=== PATIENT | male | born 1965 | race Caucasian/White ===

== ENCOUNTER 2020-10-06 15:27 | Outpatient (CLI) | payer OTHER, SELFPAY ==
[2020-10-06 18:43] LABS: Hemoglobin A1C 5.3 % (<5.7)
== END 2020-10-06 15:28 | disposition home or self-care (01) ==
DX: R73.09 Other abnormal glucose (principal)
CPT/HCPCS: 36415; 83036

== ENCOUNTER → 2020-12-20 14:03 | Outpatient (CLI) | payer MEDICARE, OTHER, SELFPAY ==
--- NOTE | ~2020-12-20 | XR_ITS ---
EXAMINATION: XR hip BI wo pelvis DATE: 12/20/2020 14:31 INDICATION: Arthritis with chronic bilateral hip pain. TECHNIQUE: Anteroposterior and frog-leg lateral views of the left hip and anteroposterior and frog-le g lateral views of the right hip were obtained. COMPARISON: None. FINDINGS: Alignment is normal at the bilateral hips. No fracture or suspected avascular necrosis. Bilateral hip and sacroiliac joint spaces are normal. Soft tissues are unremarkable. IMPRESSION: 1. Negative bilateral hip radiographs. Reviewed, dictated and finalized at location A.
--- NOTE | ~2020-12-20 | XR_ITS ---
EXAMINATION: XR knee LT 3V DATE: 12/20/2020 14:31 INDICATION: Left knee pain. Arthritis. TECHNIQUE: 3 views of left knee were obtained. COMPARISON: None. FINDINGS: Bone alignment is normal. No fracture. There is mild tricompartmental osteoarthritis. No kn ee joint effusion. IMPRESSION: 1. Mild left knee osteoarthritis. Reviewed, dictated and finalized at location A.
--- NOTE | ~2020-12-20 | XR_ITS ---
XR lumbar spine 2-3V 12/20/2020 14:31 Indication: Arthritis. Back pain. Procedure: 3 views lumbar spine Comparison: No prior studies for comparison. Findings: There is mild disc narrowing at multiple levels including L2-3 and L5-S1. Pedicles intact. Vertebral body heights are maintained. Sacral foramen is symmetric. No acute fracture or traumatic ma lalignment. Impression: 1: Mild lumbar spondylosis. Reviewed, dictated and finalized at location B. Impression: 1: Mild lumbar spondylosis.
--- NOTE | ~2020-12-20 | XR_ITS ---
EXAMINATION: XR knee RT 3V DATE: 12/20/2020 14:31 INDICATION: Right knee pain. Arthritis. TECHNIQUE: 3 views of right knee were obtained. COMPARISON: None. FINDINGS: Bone alignment is normal. No fracture. There is mild tricompartmental osteoarthritis. No kn ee joint effusion. IMPRESSION: 1. Mild right knee osteoarthritis. Reviewed, dictated and finalized at location A.
== END ==
DX: M25.562 Pain in left knee (principal); M54.5 Low back pain; M17.12 Unilateral primary osteoarthritis, left knee; M17.11 Unilateral primary osteoarthritis, right knee; M47.817 Spondylosis without myelopathy or radiculopathy, lumbosacral region; M25.552 Pain in left hip; G89.29 Other chronic pain
CPT/HCPCS: 72100; 73521; 73562

== ENCOUNTER → 2021-01-07 11:00 | Outpatient (CLI) | payer MEDICARE, OTHER, SELFPAY ==
--- NOTE | ~2021-01-07 | XR_ITS ---
XR foot LT min 3V DATE: 01/07/2021 11:36 INDICATION: Bilateral foot pain. Plantar fasciitis. TECHNIQUE: 4 views COMPARISON: None FINDINGS: Mild plantar calcaneal enthesopathy. No fracture, dislocation, periosteal reaction or bone destruction is evident. IMPRESSION: Mild plantar calcaneal enthesopathy Reviewed, dictated and finalized at location A.
--- NOTE | ~2021-01-07 | XR_ITS ---
XR foot RT min 3V DATE: 01/07/2021 11:36 INDICATION: Bilateral foot pain. Plantar fasciitis. TECHNIQUE: 4 views COMPARISON: None FINDINGS: Mild plantar calcaneal enthesopathy. No fracture, dislocation, periosteal reaction or bone destruction, erosive change. IMPRESSION: Mild plantar calcaneal enthesopathy Reviewed, dictated and finalized at location A.
== END ==
DX: M72.2 Plantar fascial fibromatosis (principal); M79.672 Pain in left foot; M77.31 Calcaneal spur, right foot; M77.32 Calcaneal spur, left foot
CPT/HCPCS: 73630

== ENCOUNTER 2022-04-14 00:49 | Day surgery (SDC) | payer OTHER, SELFPAY ==
[2022-04-03 14:47] VITALS: BMI 31.6
[2022-04-14 08:03] VITALS: BP 132/72; PULSE 58; RESP 18; TEMP 35.6; O2SAT 100
[2022-04-14] MEDS: LACTATED RINGERS 1,000 ML 150 ML IV CONT (08:09)
--- NOTE | 2022-04-14 08:37 | PM.HPGS ---
History of Present Illness History of Present Illness Consent: Risks, benefits, and alternatives have been discussed and questions answered. Patient agrees to proceed with procedure. Chief complaint: history of colon polyps Narrative: Manuel Hurtado is a 56 year old male with colon polyps 5 years ago Review of Systems Constitutional: Constitutional: Denies headache(s) and Denies weakness Eyes: Eyes: Denies blurry vision ENT: Reports Normal hearing present, Denies headache(s) and Denies neck pain Cardiovascular: Cardiovascular: Denies chest pain and Denies dyspnea Respiratory: Respiratory: Denies dyspnea Gastrointestinal: Gastrointestinal: Reports no additional gastrointestinal complaints Genitourinary: Genitourinary: Denies dysuria Musculoskeletal: Musculoskeletal: Denies neck pain Integumentary/Breasts: Skin/Breast: Denies dry skin Neurologic: Reports Normal hearing present, Denies headache(s) and Denies weakness Psychiatric: Psychiatric: Denies anxiety Endocrine: Endocrine: Denies change in body appearance Hematologic/Lymphatic: Hematologic/Lymphatic: Denies easy bleeding Allergic/Immunologic: Allergic/Immunologic: Denies urticaria PMF Past Medical History Medical History (Updated 04/14/22 @ 08:37 by Derek Raymundo MD) Adenomatous colon polyp Anxiety Arthritis Family History Family History Sibling Cancer Social History Social History Smoking status: Never smoker Second hand tobacco smoke exposure: No Alcohol intake: current Substance use: never Living arrangements: with family Spiritual care concerns: No Meds Home Medications and Allergies Home Medications Medication Instructions Recorded Confirmed Type multivitamin 1 tablet PO DAILY 01/17/22 04/03/22 History sodium sul 1.479 gram-potas ch See Rx Instructions PO .COMPLEX 02/09/22 Rx 0.188 gram-magnes sul 0.225 gram #24 tabs tablet (Sutab) sildenafil 25 mg tablet (Viagra) 25 mg PO DAILY PRN Erectile 04/03/22 04/03/22 History Dysfunction Allergies Allergy/AdvReac Type Severity Reaction Status Date / Time No Known Allergies Allergy Unverified 01/17/22 14:27 Vital Signs Vital Signs - 24 hr 04/14/22 08:03 Temperature 96.1 F L Pulse Rate 58 L Respiratory Rate 18 Blood Pressure 132/72 Pulse Oximetry 100 Oxygen Delivery Room Air Exam Const: General: comfortable and no acute distress HENMT: General nose exam: Normal nares present Eyes: General: appearance normal, both eyes and all related structures Neck: Neck: no JVD Resp: Auscultation: clear to auscultation bilaterally Cardio: Rate: regular rate Rhythm: regular rhythm GI: Inspection: non-distended GI Palp: Yes Soft to palpation Skin: General skin exam: normal color Neuro: General: gait normal Speech: normal speech Extrem: General: normal to inspection Psych: Mental Status: mental status grossly normal Assessment and Plan Assessment and plan (1) Adenomatous colon polyp: Code(s): D12.6 - Benign neoplasm of colon, unspecified Status: Acute Assessment and Plan: colonoscopy
[2022-04-14 08:58] VITALS: BP 81/58; PULSE 58; RESP 13; O2SAT 99
[2022-04-14 09:08] VITALS: BP 105/65; PULSE 49; RESP 13; O2SAT 100
[2022-04-14 09:18] VITALS: BP 105/80; PULSE 50; RESP 16; O2SAT 100
== END 2022-04-14 09:42 | disposition home or self-care (01) ==
PROVIDERS: PCP Physician Assistant; Visit Provider Internal Medicine Gastroenterology
PROC: 0DJD8ZZ Inspection of Lower Intestinal Tract, Via Natural or Artificial Opening Endoscopic (ICD-10-PCS; CPT 45378; principal; 2022-04-14 09:00)
DX: Z12.11 Encounter for screening for malignant neoplasm of colon (principal); Z86.010 Personal history of colon polyps; K57.30 Diverticulosis of large intestine without perforation or abscess without bleeding; K64.8 Other hemorrhoids; F41.9 Anxiety disorder, unspecified; M19.90 Unspecified osteoarthritis, unspecified site
CPT/HCPCS: 45378; J2704; J7120

== ENCOUNTER → 2023-08-30 14:50 | Outpatient (CLI) | payer OTHER, SELFPAY ==
--- NOTE | ~2023-08-30 | US_ITS ---
EXAMINATION: US retroperitoneal comp DATE: 08/30/2023 15:12 INDICATION: Elevated serum creatinine. TECHNIQUE: Multiple ultrasound grayscale images of the kidneys were obtained. COMPARISON: None. FINDINGS: The right kidney measures 13.6 x 6.3 x 7.8 cm. The left kidney measures 12.1 x 5.7 x 5.5 cm. The kidn eys demonstrate normal parenchymal echogenicity. There is no hydronephrosis. The bladder is normal. IMPRESSION: 1. Normal kidneys. No hydronephrosis. Reviewed, dictated and finalized at location E. GUARD
== END ==
PROVIDERS: PCP Nurse Practitioner; Visit Provider Nurse Practitioner
DX: R79.89 Other specified abnormal findings of blood chemistry (principal)
CPT/HCPCS: 76770